=== PATIENT | female | born 1960 | race African-American/Black ===

== ENCOUNTER 2019-05-17 08:47 | Outpatient (CLI) | payer OTHER | END 2019-05-17 20:37 | disposition home or self-care (01) | LOC: MAMMO 08:47 | DX: Z12.31 Encounter for screening mammogram for malignant neoplasm of breast (principal) ==

== ENCOUNTER 2021-01-30 09:49 | Outpatient (CLI) | payer OTHER ==
[2021-01-30 10:30] LABS: PLATELET COUNT 189 K/uL (152-353)
[2021-01-30 10:51] LABS: POTASSIUM 3.9 mmol/L (3.6-5.2)
== END 2021-01-30 22:51 | disposition home or self-care (01) ==
LOC: LABW 09:49
PROVIDERS: ATTEND Nurse Practitioner Family
DX: R53.83 Other fatigue (principal); E78.2 Mixed hyperlipidemia; M79.672 Pain in left foot; M25.561 Pain in right knee
CPT/HCPCS: 36415; 80053; 80061; 82607; 84443; 85027

== ENCOUNTER 2022-08-09 12:59 | Outpatient (CLI) | payer OTHER | END 2022-08-09 19:25 | disposition home or self-care (01) | LOC: MAMMO 12:59 | PROVIDERS: ATTEND Internal Medicine | DX: Z12.31 Encounter for screening mammogram for malignant neoplasm of breast (principal) ==